=== PATIENT | female | born 1955 | race Caucasian/White ===

== ENCOUNTER 2020-12-07 17:25 | Emergency (ER) | payer MEDICARE, SELFPAY ==
[2020-12-07] VITALS (8 sets, daily range): BP systolic 126–149; BP diastolic 59–67; PULSE 77–90; RESP 18–79; TEMP 36.6; O2SAT 93–100
--- NOTE | 2020-12-07 17:49 | DI.RAD.S_ITS ---
PROCEDURE: XR ANKLE LT MIN 3V INDICATIONS: fall TECHNIQUE: Three views of the ankle were acquired. COMPARISON: None. FINDINGS: Bones: There is a minimally displaced oblique fracture of the distal fibular shaft at the level of the syndesmosis. There is minimal comminution. No widening of the medial clear space is seen. No acute tibial fracture identified. Soft tissues: Soft tissue edema is seen over the lateral malleolus. IMPRESSION: Minimally displaced and slightly comminuted oblique fracture of the distal fibular shaft. Dictated by: Carlos Manuel Byrd M.D. on 12/07/2020 at 18:15 Approved by: Carlos Manuel Byrd M.D. on 12/07/2020 at 18:16
--- NOTE | 2020-12-07 17:50 | DI.RAD.S_ITS ---
PROCEDURE: XR KNEE LT 1TO2V INDICATIONS: fall TECHNIQUE: 2 views of the knee were acquired. COMPARISON: None. FINDINGS: Bones: No acute fractures or dislocations. No suspicious bony lesions. Soft tissues: No significant joint effusion. No suspicious soft tissue calcifications. IMPRESSION: No acute osseous abnormality. If clinical suspicion and/or symptoms persist, additional imaging with repeat plain films, or advanced imaging (e.g. CT, MRI) may be helpful for further assessment. Dictated by: Carlos Manuel Byrd M.D. on 12/07/2020 at 18:16 Approved by: Carlos Manuel Byrd M.D. on 12/07/2020 at 18:17
--- NOTE | 2020-12-07 20:02 | ED.HEATRA ---
HPI - Head Injury General Chief complaint: Head Injury Stated complaint: fall, bilateral legs, left elbow, head injury Time Seen by Provider: 12/07/20 18:03 Source: patient and family Mode of arrival: Wheelchair Limitations: no limitations History of Present Illness HPI Narrative: 65-year-old female nonsmoker, otherwise healthy presents with her with a chief complaint of injury suffered secondary to fall prior to arrival. She had been in her normal state of health and she and her were hiking at [place]. She stepped awkwardly and fell backwards down a rather steep incline. states she somersaulted down a fifty degree incline about 15 feet. She did strike her head and has a superficial abrasion but denies loss of consciousness. She has full recall of the event. She denies any use of blood thinners, alcohol or street drugs. She has multiple superficial abrasions including a laceration on her left knee but primary point of injury is her left ankle. She did ambulate on it prior to her arrival here and states this is associated with significant pain. She denies numbness, tingling or weakness. She was activated as a modified trauma given fall with expected injury and age 65 or greater Related Data Previous Rx's Medication Instructions Recorded cephalexin 500 mg capsule 500 mg PO Q6H 7 Days #28 cap 12/07/20 hydrocodone 5 mg-acetaminophen 325 1 tab PO Q4-6H PRN #10 tab 12/07/20 mg tablet Allergies Allergy/AdvReac Type Severity Reaction Status Date / Time Sulfa (Sulfonamide Allergy Intermediate Hives Verified 12/07/20 17:48 Antibiotics) codeine AdvReac Intermediate Nausea Verified 12/07/20 17:48 Review of Systems Review of Systems Narrative: GENERAL: See HPI. HEENT: Denies sinus pain, ear pain, sore throat, difficulty swallowing, dizziness. RESPIRATORY: Denies dyspnea, cough, wheezing, hemoptysis, sputum. CARDIOVASCULAR: Denies chest pain, palpitations, orthopnea, edema, GASTROINTESTINAL: Denies nausea, vomiting, abdominal pain, diarrhea, constipation, melena. : Denies dysuria, frequency, incontinence, hematuria, urinary retention. MUSCULOSKELETAL: See HPI SKIN: Denies rash, skin lesions, or other NEUROLOGIC: Denies weakness, headache, numbness, change in speech, confusion, seizures, incoordination. PSYCHIATRIC: No concerning psychosocial issues. 12 point review of systems is negative except for those stated above Patient History Social History Smoking Status: Never smoker Smoking Status: Never smoker alcohol intake frequency: a few times a week Alcohol type: wine Substance Use Type: does not use Exam Narrative Exam Narrative: GENERAL: [65] year old patient appears stated age. Well-developed patient, in mild distress. GCS 15 HEAD: Superficial abrasion on occiput, nothing to suture. No evidence of depressed skull fracture EYES: Pupils equal round and reactive. No hyphema. Extraocular motions intact. No scleral icterus. No injection or drainage. ENT: Nose without bleeding, purulent drainage. No nasal septal hematoma. Throat without erythema, tonsillar hypertrophy or exudate. Airway patent. NECK: Trachea midline. No midline tenderness, step-offs or crepitance. CARDIOVASCULAR: Regular rate and rhythm without murmurs, gallops, or rubs. RESPIRATORY: Clear to auscultation. Breath sounds equal bilaterally. No wheezes, rales, or rhonchi. GASTROINTESTINAL: Abdomen soft, non-tender, nondistended. EXTREMITIES: Superficial abrasions on bilateral elbows, injuries will not require repair, full range of motion at elbows, shoulders and wrists. She has painful but full range of motion of left knee with the deep irregular laceration overlying the kneecap measuring 3 cm. No foreign body noted. No involvement of the joint capsule. Pain to palpation with associated swelling of lateral left lower extremity, sensation of toes intact, full range of motion of toes and forefoot, dorsalis pedis pulse is palpable. BACK: Nontender without deformity or crepitance. No flank tenderness. NEURO: AOx3. SKIN: No rash or erythema of visible areas Initial Vital Signs Initial Vital Signs: Vital Signs Temperature 97.9 F 12/07/20 17:41 Pulse Rate 77 12/07/20 17:41 Respiratory Rate 18 12/07/20 17:41 Blood Pressure 126/59 L 12/07/20 17:41 Pulse Oximetry 100 12/07/20 17:41 Procedures Laceration Repair Laceration 1: Site: lower extremity Side (If applicable): left Size (cm): 3 Depth: simple, single layer Local Anesthetic: lidocaine 1% and with epi Amount of anesthesia used (mL): 4 Pre-repair: wound explored, irrigated extensively and deep structures intact Skin layer closed with: nylon Size (cm): 4-0 Number of sutures: 6 Technique: simple, interrupted and horizontal mattress Orthopedic Splinting/Casting Injury #1: Side: left Lower Extremity Injury Location: ankle Lower Extremity Immobilizer: boot orthosis Other Orthopedic Equipment: crutches Course Orders Ordered: ED Orders 12/07/20 17:49 XR ankle LT min 3V Stat 12/07/20 17:50 XR knee LT 1to2V Stat 12/07/20 20:07 CT head/brain wo con Stat Discontinued Medications Hydrocodone Bitart/Acetaminophen (Hydrocodone/Acet 5/325 Prepack) 1 bottle MISC SEEINSTR ONE Stop: 12/07/20 20:08 Last Admin: 12/07/20 20:54 Dose: 1 bottle Documented by: SUMMER Diphtheria/Tetanus/Acell Pertussis (Tet,Diph,Pertuss(Acell),Vac/Pf 0.5 Ml Syringe) 0.5 ml IM .ONCE ONE Stop: 12/07/20 17:51 Last Admin: 12/07/20 20:33 Dose: 0.5 ml Documented by: GARTH Lidocaine/Sodium Bicarbonate (Lido 1%/Sod Bicarb 8.4% (10ml) 10 Ml Syringe) 10 ml INJ NOW ONE Stop: 12/07/20 20:52 Last Admin: 12/07/20 21:15 Dose: 10 ml Documented by: GARTH Consultations Consultation #1: discussed with [facility] (Dr. Arroyo) who recommends splinting and stresses NO WEIGHT bearing and close follow up. Vital Signs Vital signs: Vital Signs - 8 hr 12/07/20 19:55 12/07/20 20:22 12/07/20 20:30 Pulse Rate 77 84 81 Respiratory Rate 79 H Blood Pressure 146/67 H Pulse Oximetry 100 93 100 12/07/20 20:38 12/07/20 21:00 12/07/20 21:23 Pulse Rate 82 82 90 Respiratory Rate Blood Pressure 149/67 H Pulse Oximetry 100 100 100 12/07/20 21:24 Pulse Rate Respiratory Rate Blood Pressure 144/64 H Pulse Oximetry MDM - Head Injury Imaging Data CT scan - head: Radiologist's Impression: [address] [id number] Scan ReportSigned Patient: Angela Saldaña AnnMR#: [id number]: 6Acct:[id number]/Sex: 65 / FDate of Service: 12/07/20Loc: EDAccession Number: [id number] Procedure: CT head/brain wo con Ordering Provider: Elbert Catherine D.O. PROCEDURE: CT HEAD/BRAIN WO CON INDICATIONS: fall with head injury TECHNIQUE: Noncontrast 4.5 mm thick angled axial sections acquired from the foramen magnum to the vertex, with coronal and sagittal reformats. For radiation dose reduction, the following was used: automated exposure control, adjustment of mA and/or kV according to patient size. COMPARISON: None. FINDINGS: Image quality: Excellent. CSF spaces: Basal cisterns are patent. No extra-axial fluid collections. Ventricles are symmetric in size and shape. Brain: No midline shift. No intracranial masses or hemorrhage. Dotson-white matter interface is normal. There is mild diffuse age-related cerebral volume loss. Skull and face: Calvarium and visualized facial bones are intact, without suspicious lesions. Focal soft tissue edema and a focus of gas is seen in the left parietal scalp, and consistent with laceration. No radiopaque foreign body is seen. Sinuses: Visualized sinuses and mastoids are clear. IMPRESSION: Left parietal scalp laceration with associated edema. No radiopaque foreign body. No skull fracture or intracranial hemorrhage. Dictated by: Carlos Manuel Byrd M.D. on 12/07/2020 at 20:29 Approved by: Carlos Manuel Byrd M.D. on 12/07/2020 at 20:38 Extremity x-ray #1: Radiologist's Impression: [address] [id number] ReportSigned Patient: Angela Saldaña AnnMR#: [id number]: 6Acct:[id number]/Sex: 65 / FDate of Service: 12/07/20Loc: EDAccession Number: [id number] Procedure: XR knee LT 1to2V Ordering Provider: Randolph Terrell D.O. PROCEDURE: XR KNEE LT 1TO2V INDICATIONS: fall TECHNIQUE: 2 views of the knee were acquired. COMPARISON: None. FINDINGS: Bones: No acute fractures or dislocations. No suspicious bony lesions. Soft tissues: No significant joint effusion. No suspicious soft tissue calcifications. IMPRESSION: No acute osseous abnormality. If clinical suspicion and/or symptoms persist, additional imaging with repeat plain films, or advanced imaging (e.g. CT, MRI) may be helpful for further assessment. Dictated by: Carlos Manuel Byrd M.D. on 12/07/2020 at 18:16 Approved by: Carlos Manuel Byrd M.D. on 12/07/2020 at 18:17 Extremity x-ray #2: Radiologist's Impression: [address] [id number] ReportSigned Patient: Angela Saldaña AnnMR#: [id number]: 1955cct:[id number]/Sex: 65 / FDate of Service: 12/07/20Loc: EDAccession Number: [id number] Procedure: XR ankle LT min 3V Ordering Provider: Randolph Terrell D.O. PROCEDURE: XR ANKLE LT MIN 3V INDICATIONS: fall TECHNIQUE: Three views of the ankle were acquired. COMPARISON: None. FINDINGS: Bones: There is a minimally displaced oblique fracture of the distal fibular shaft at the level of the syndesmosis. There is minimal comminution. No widening of the medial clear space is seen. No acute tibial fracture identified. Soft tissues: Soft tissue edema is seen over the lateral malleolus. IMPRESSION: Minimally displaced and slightly comminuted oblique fracture of the distal fibular shaft. Dictated by: Carlos Manuel Byrd M.D. on 12/07/2020 at 18:15 Approved by: Carlos Manuel Byrd M.D. on 12/07/2020 at 18:16 Discharge Plan Departure Patient Disposition: Home Clinical Impression: Closed head injury Qualifiers: Encounter type: initial encounter Qualified Code(s): S09.90XA - Unspecified injury of head, initial encounter Abrasion of scalp Qualifiers: Encounter type: initial encounter Qualified Code(s): S00.01XA - Abrasion of scalp, initial encounter Fracture of distal end of fibula Qualifiers: Encounter type: initial encounter Fracture type: closed Fracture morphology: other fracture Laterality: left Qualified Code(s): S82.832A - Other fracture of upper and lower end of left fibula, initial encounter for closed fracture Knee laceration Qualifiers: Encounter type: initial encounter Laterality: left Qualified Code(s): S81.012A - Laceration without foreign body, left knee, initial encounter Instructions: Fibula Shaft Fracture Activity Restrictions/Additional Instructions: *You have been diagnosed with [minimally displaced and slightly comminuted fracture of left distal fibular shaft] *What to do: *Please continue to take your regular medications as directed. [ ] New medication prescriptions sent to your pharmacy: [ ] [ ] New medication written as a paper prescription [x] Tylenol and occasional Motrin for pain *Please follow up with [Cruz] of [facility] in 2-3 days, call for an appointment. Let them know you were seen in the Emergency Department and that we ask that you be seen in follow up. We will electronically transmit a record of today's note if your PCP is in our system *Return to Emergency Department if you should have any new, worsening or concerning symptoms, such as [worsening pain, significant swelling, cold extremities, numbness, tingling, weakness or other bothersome symptoms NO WEIGHT BEARING Prescriptions: New hydrocodone-acetaminophen 5-325 mg tablet 1 tab PO Q4-6H PRN (Reason: pain) Qty: 10 RF: 0 cephalexin 500 mg capsule 500 mg PO Q6H 7 Days Qty: 28 RF: 0 Referrals: Chris Arroyo MD [Physician] -
--- NOTE | 2020-12-07 20:07 | DI.CT.S_ITS ---
PROCEDURE: CT HEAD/BRAIN WO CON INDICATIONS: fall with head injury TECHNIQUE: Noncontrast 4.5 mm thick angled axial sections acquired from the foramen magnum to the vertex, with coronal and sagittal reformats. For radiation dose reduction, the following was used: automated exposure control, adjustment of mA and/or kV according to patient size. COMPARISON: None. FINDINGS: Image quality: Excellent. CSF spaces: Basal cisterns are patent. No extra-axial fluid collections. Ventricles are symmetric in size and shape. Brain: No midline shift. No intracranial masses or hemorrhage. Dotson-white matter interface is normal. There is mild diffuse age-related cerebral volume loss. Skull and face: Calvarium and visualized facial bones are intact, without suspicious lesions. Focal soft tissue edema and a focus of gas is seen in the left parietal scalp, and consistent with laceration. No radiopaque foreign body is seen. Sinuses: Visualized sinuses and mastoids are clear. IMPRESSION: Left parietal scalp laceration with associated edema. No radiopaque foreign body. No skull fracture or intracranial hemorrhage. Dictated by: Carlos Manuel Byrd M.D. on 12/07/2020 at 20:29 Approved by: Carlos Manuel Byrd M.D. on 12/07/2020 at 20:38
--- NOTE | 2020-12-07 20:28 | PC.NURSE ---
Pt reports falling down 60 degree approximately 15 ft, denies LOC, not on blood thinners. Pt denies tenderness to cspine, denies headache, reports some nausea directly after now resolved, acting appropriately per . Noted abrasions in trauma flow sheet appear superficial, cleaned at [facility] and dress appropriately with gauze and kerlix.
[2020-12-07] MEDS: TET,DIPH,PERTUSS(ACELL),VAC/PF 0.5 ML SYRINGE IM (20:33)
[2020-12-07] MEDS: HYDROCODONE/ACET 5/325 PREPACK 1 BOTTLE MISC (20:54)
[2020-12-07] MEDS: LIDO 1%/SOD BICARB 8.4% (10ML) 10 ML SYRINGE INJ (21:15)
== END 2020-12-07 21:35 | disposition home or self-care (01) ==
PROVIDERS: Emergency Provider Emergency Medicine
DX: S82.832A Other fracture of upper and lower end of left fibula, initial encounter for closed fracture (principal); S81.012A Laceration without foreign body, left knee, initial encounter; S09.90XA Unspecified injury of head, initial encounter; S00.01XA Abrasion of scalp, initial encounter; W19.XXXA Unspecified fall, initial encounter; Z23 Encounter for immunization
CPT/HCPCS: 12002; 70450; 73560; 73610; 90471; 99284; 90715